=== PATIENT | female | born 1985 | race Caucasian/White ===

== ENCOUNTER 2021-04-15 07:50 | Emergency (ER) | payer OTHER ==
[~2021-04-15] VITALS: Ht 165.1 cm; Wt 119.8 kg
[2021-04-15] MEDS ORDERED: OMEP20ER PO (08:43)
[2021-04-15] MEDS ORDERED: LOSARTAN-HCTZ1 EACH PO (08:44)
[2021-04-15] MEDS ORDERED: ONDA4 PO (08:44)
[2021-04-15] MEDS ORDERED: TOPI25 PO (08:45)
[2021-04-15] MEDS ORDERED: Flexeril5 MG PO (09:28)
== END 2021-04-15 09:38 | disposition home or self-care (01) ==
LOC: ER 07:50
DX: S61.512A Laceration without foreign body of left wrist, initial encounter (principal); S16.1XXA Strain of muscle, fascia and tendon at neck level, initial encounter; S29.012A Strain of muscle and tendon of back wall of thorax, initial encounter; I10 Essential (primary) hypertension; Z91.048 Other nonmedicinal substance allergy status; Z79.899 Other long term (current) drug therapy; V89.2XXA Person injured in unspecified motor-vehicle accident, traffic, initial encounter
CPT/HCPCS: 12002; 73110; 96372-59; 99284-25; J1885